=== PATIENT | male | born 1965 | race Caucasian/White ===

== ENCOUNTER 2022-03-20 06:06 | Day surgery (SDC) | payer OTHER ==
[~2022-03-20] VITALS: Ht 175.3 cm; Wt 75.5 kg
[~2022-03-20 06:06] MED LIST: PANT40TA54 PO; SODIUM CHLORIDE 0.9% 1,000 ML IV ONE
[2022-03-20] MEDS ORDERED: LIDOCAINE 4% 50 ML SOLUTION TP ONE (06:07)
[2022-03-20] MEDS ORDERED: BENZOCAINE 20% 50 MCG/SPRAY 57 GM TP ONE (06:07)
[2022-03-20] MEDS ORDERED: LIDOCAINE 2% 11 ML JELLY TP ONE (06:07)
[2022-03-20] MEDS ORDERED: SODIUM CHLORIDE 0.9% 0 ML ONE (06:28)
[2022-03-20 06:40] LABS: COVID AG,FIA SOURCE NASAL SWAB
[2022-03-20] MEDS ORDERED: SODIUM CHLORIDE 0.9% 1,000 ML ONE (06:40)
[2022-03-20] MEDS ORDERED: AZEL137S8 NASAL (07:01)
[2022-03-20] MEDS ORDERED: ALBU8HFA IH (07:01)
[2022-03-20] MEDS ORDERED: DOXY75CA5 PO (07:01)
[2022-03-20] MEDS ORDERED: MONT-35 PO (07:01)
[2022-03-20] MEDS ORDERED: SODI45SP10 NASAL (07:01)
[2022-03-20] MEDS ORDERED: PRED-729 PO (07:01)
[2022-03-20] MEDS ORDERED: LORA10TA7 PO (07:01)
[2022-03-20] MEDS ORDERED: MIDAZOLAM HCL 5 MG/ML VIAL ONE (08:19)
[2022-03-20] MEDS ORDERED: FentaNYL CITRATE PF 100 MCG/2 ML VIAL ONE (08:19)
[2022-03-20] MEDS ORDERED: MethylPREDNISolone SOD SUCC 125 MG/2 ML VIAL ONE (09:29)
[2022-03-20] MEDS ORDERED: MethylPREDNISolone SOD SUCC 125 MG/2 ML VIAL IVP ONE (09:30)
[2022-03-20] MEDS ORDERED: GuaiFENesin/CODEINE [SUGAR FREE] 200-20MG/10 ML SYRUP UDCUP PO ONE (10:00)
[2022-03-20] MEDS ORDERED: ALBUTEROL SULFATE 2.5 MG/0.5 ML NEB SOLUTION NEB ONE ×2 (10:05→10:15)
[2022-03-20] MEDS ORDERED: OXYGEN THERAPY IH SCH (20:00)
== END 2022-03-20 12:10 | disposition home or self-care (01) ==
LOC: SURGERY 06:06
PROVIDERS: ATTEND Internal Medicine Critical Care Medicine
DX: J38.4 Edema of larynx (principal); B37.0 Candidal stomatitis; Z72.89 Other problems related to lifestyle; Z98.890 Other specified postprocedural states; Z79.899 Other long term (current) drug therapy
CPT/HCPCS: 31623; 88112; 87206; 87101; 87220; 87070; 88305; 88312; 31624; 71045; 71250; 87015; 87426; J3010; J2930; J2250; Q9967; J7030; C9803; J7613; Z7610